=== PATIENT | female | born 1940 | race Caucasian/White ===

== ENCOUNTER 2018-03-21 13:42 | Observation (INO) | payer MEDICARE, BC ==
--- NOTE | 2018-03-21 13:50 | Emergency Department Record ---
History of Present Illness - General Chief Complaint: Dizziness Stated Complaint: DIZINESS Time Seen by Provider: 03/21/18 13:44 Source: Patient, EMS Mode of Arrival: EMS Limitations: No limitations - History of Present Illness Initial Comments: 77 yo female presents with diarrhea and an episode of dizziness. She states she felt dizzy since her dentist appointment at 1pm. She feels unsteady on her feet. The onset was upon standing after being in the dentist chair for a check up with cleaning. No headache. She has also been having diarrhea. She reports she had an urge to have a bowel movement and drove the [employer] to go to the restroom but was unable to make it in time. No vomiting. No headache , vision changes, hearing changes, speech changes, coordination changes of the arms or legs. She feels off balance with walking. PCP is Dr Smith. EMS reports the symptoms have been recurrent with bowel movements since the diarrhea started. EMS reports she walked in a steady manner to the ambulance. MD Complaint: Dizziness -: Hour(s) Timing: Constant (Started today after getting up from the dentist chair) History of Same: Yes History of Trauma: No Severity: Moderate Improves With: Remaining still, Rest Worsens With: Movement, Position Associated Symptoms: Other (diarrhea) - [place] Coma Scale Eye Response: (4) Open spontaneously Motor Response: (6) Obeys commands Verbal Response: (5) Oriented Brodie Total: 15 - Related Data Home Medications Medication Instructions Recorded Confirmed Last Taken Fluoxetine HCl [Prozac] 10 mg PO DAILY 03/21/18 03/21/18 Unknown Fluticasone Propionate [Flovent 10.6 gm IH QHS 03/21/18 03/21/18 Unknown Hfa] Metoprolol Succinate [Toprol Xl] 50 mg PO QHS 03/21/18 03/21/18 Unknown Olmesartan Medoxomil [Benicar] 40 mg PO DAILY 03/21/18 03/21/18 Unknown Allergies Allergy/AdvReac Type Severity Reaction Status Date / Time peanut Allergy SWELLING Verified 03/21/18 13:51 OF THE TONGUE Review of Systems Constitutional: Denies: Chills, Fever, Malaise, Weakness Eyes: Denies: Eye discharge, Eye pain, Photophobia, Vision change ENT: Denies: Congestion, Throat pain Respiratory: Denies: Cough, Dyspnea, Hemoptysis, Wheezes Cardiovascular: Denies: Chest pain, Palpitations, Syncope Endocrine: Denies: Fatigue, Polydipsia, Polyuria Gastrointestinal: Reports: As per HPI, Diarrhea. Denies: Abdominal pain, Nausea , Vomiting Genitourinary: Denies: Dysuria, Urgency Musculoskeletal: Denies: Arthralgia, Back pain, Joint swelling, Myalgia Skin: Denies: Bruising, Change in color, Rash Neurological: Reports: Abnormal gait, Vertigo. Denies: Confusion, Headache, Numbness, Paresthesias, Seizure, Tingling, Tremors, Weakness Psychiatric: Denies: Anxiety Hematological/Lymphatic: Denies: Blood Clots, Easy bleeding, Easy bruising Past Medical History - SOCIAL HISTORY Smoking Status: Current every day smoker - RESPIRATORY Hx Respiratory Disorders: Yes Hx COPD: Yes (? smoker) - CARDIOVASCULAR Hx Cardio Disorders: Yes Hx Hypertension: Yes Comment:: Hypercholesteremia - NEURO Hx Neuro Disorders: Yes Hx Neuropathy: Yes (LLE) - GI Hx GI Disorders: Yes Hx Reflux: Yes Hx Irritable Bowel: Yes Comment:: chronic diarrhea - Hx Genitourinary Disorders: Yes Hx Bladder Problem: Yes (stress incontinence) - ENDOCRINE Hx Endocrine Disorders: Yes Hx Diabetes: No Hx Thyroid Disease: Yes (status post total thyroidectomy 12/25/13) - MUSCULOSKELETAL Hx Musculoskeletal Disorders: Yes Hx Arthritis: Yes Hx Back Injury: Yes (fall -> injured LLE) Hx Osteoporosis: Yes - PSYCH Hx Psych Problems: Yes Hx Depression: Yes - HEMATOLOGY/ONCOLOGY Hx Hematology/Oncology Disorders: No Family Medical History Hx Cancer: Brother/Sister Hx Heart Disease: Father, Mother, Brother/Sister *Heart Comment: 2 brothers with aneurysms one with brain and the other in chest Physical Exam - General General Appearance: Alert, Oriented x3, Cooperative, No acute distress Limitations: No limitations - Head Head exam: Atraumatic, Normocephalic, Normal inspection - Eye Eye exam: Normal appearance, PERRL, EOMI. negative: Conjunctival injection, Periorbital swelling, Scleral icterus Pupils: Normal accommodation - ENT ENT exam: Normal exam, Mucous membranes moist Ear exam: Normal external inspection Nasal Exam: Normal inspection Mouth exam: Normal external inspection - Neck Neck exam: Normal inspection - Respiratory Respiratory exam: Normal lung sounds bilaterally. negative: Respiratory distress, Rhonchi, Stridor, Wheezes - Cardiovascular Cardiovascular Exam: Regular rate, Normal rhythm, Normal heart sounds Peripheral Pulses: 2+: Radial (R), Radial (L) - GI/Abdominal GI/Abdominal exam: Soft. negative: Tenderness - Rectal Rectal exam: Deferred - exam: Deferred - Extremities Extremities exam: Normal inspection. negative: Full ROM, Pedal edema, Tenderness - Back Back exam: Denies: CVA tenderness (R), CVA tenderness (L) - Neurological Neurological exam: Alert, CN II-XII intact, Oriented X3. negative: Motor sensory deficit - Psychiatric Psychiatric exam: Normal affect, Normal mood - Skin Skin exam: Dry, Intact, Normal color, Warm Stroke Assessment - NIH Stroke Scale 1a. Level of Consciousness: (0) Alert 1b. LOC Questions: (0) Answers Correctly 1c. LOC Commands: (0) Performs Tasks Correctly 2. Best Gaze: (0) Normal 3. Visual: (0) No Visual Loss 4. Facial Palsy: (0) Normal Symmetrical Movement 5a. Motor Arm Left: (0) No Drift 5b. Motor Arm Right: (0) No Drift 6a. Motor Leg Left: (0) No Drift 6b. Motor Leg Right: (0) No Drift 7. Limb Ataxia: (0) Absent 8. Sensory: (0) Normal 9. Best Language: (0) No Aphasia 10. Dysarthria: (0) Normal 11. Extinction/Inattention: (0) No Abnormality NIH Stoke Scale Total: 0 Course - Reevaluation(s) Reevaluation #1: NIH is 0 03/21/18 13:56 Some delay getting to CT to clean up diarrhea on patient 03/21/18 14:14 No acute changes on the CBC 03/21/18 14:21 The HCT was negative for acute infarct or hemorrhage. 03/21/18 14:26 The CMP and PT/PTT were normal 03/21/18 14:35 EKG #1: 1427 Rate: 50 Rhythm: sinus fabiola [place]: left Intervals: QTc 459, Qt 500 ST segments: No acute changes Prior: 12/19/13 HR 75 at that time with normal Qt On recheck the pain is able to stand and transfer well. Mild dizzy feeling. 03/21/18 14:36 HR does at times decrease to mid 40's. She is on a betablocker and CCB. I recommend admission for further work up of the symptoms and hold the medications, cardiology consultation, echo, carotids. 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 03/21/18 14:47 03/21/18 15:07 The Troponin is negative 03/21/18 15:13 The case was discussed with Dr Damon for admission for dizziness, bradycardia Medical Decision Making - Lab Data Result diagrams: 03/21/18 13:50 03/21/18 13:50 Disposition Disposition: Admit Clinical Impression: Bradycardia, Dizziness Disposition: Still a Patient at [facility] Decision to Admit: Admit from ER Decision to Admit Date: 03/21/18 Decision to Admit Time: 15:13 Condition: (2) Stable Forms: Patient Portal Access Time of Disposition: 15:13 Quality - Quality Measures Quality Measures: N/A - Blood Pressure Screening Does Patient Have Any of the Following: Active Dx of HTN Blood Pressure Classification: Hypertensive Reading Systolic Measurement: 173 Diastolic Measurement: 73 Screening for High Blood Pressure: Patient Exclusion, Hx of HTN [G9744]
[2018-03-21] MEDS ORDERED: MECLIZINE 25 MG TABLET PO ONE (13:55)
[2018-03-21 13:58] LABS: BASO % 0.4 % (0-6); EOS % 2.1 % (0-6); GRAN % 56.9 % (47-80); HEMATOCRIT 50.3 % (35.0-47.0); HEMOGLOBIN 16.3 gm/dl (11.6-16.0); LYMPH % 33.6 % (16-45); MEAN CELL VOLUME 95.3 fl (81-97); MEAN CORPUSCULAR HEMOGLOBIN 30.8 pg (27-33); MEAN CORPUSCULAR HGB CONC 32.4 g/dl (32-36); MEAN PLATELET VOLUME 10.2 fl (7.4-10.4); PLATELET COUNT 203 K/uL (130-400); RED BLOOD COUNT 5.28 M/uL (3.80-5.40); RED CELL DISTRIBUTION WIDTH 13.6 % (11.5-14.5); WHITE BLOOD COUNT W/O DIFF 6.7 K/uL (4.2-12.2)
[2018-03-21 14:11] LABS: PARTIAL THROMBOPLASTIN TIME 28.6 SECONDS (24.5-39.1)
[2018-03-21 14:12] LABS: BLOOD UREA NITROGEN 13 mg/dL (8-23); CREATININE 0.8 mg/dL (0.5-0.9); EST GLOMERULAR FILTRATION RATE > 60 mL/min
[2018-03-21 14:14] LABS: GLUCOSE,RANDOM 150 mg/dL (74-109)
[2018-03-21 14:17] LABS: ALB/GLOB RATIO 1.8 (1.1-1.8); ALBUMIN 4.5 g/dL (4.0-5.0); ALKALINE PHOSPHATASE 69 U/L (35-104); ALT/SGPT 20 U/L (<33); AST/SGOT 20 U/L (10.0-35.0)
[2018-03-21] MEDS ORDERED: ACETAMINOPHEN 325 MG TAB PO PRN (16:46)
[2018-03-21] MEDS ORDERED: PNEUM 13-VAL/PF 0.5 ML IM ONE (16:48)
[2018-03-21] MEDS ORDERED: FLUTICASONE PROPIONATE IH SCH (22:00)
[2018-03-22] MEDS ORDERED: LEVOTHYROXINE SODIUM 100 MCG TABLET PO SCH (08:00)
[2018-03-22] MEDS: GABAPENTIN 100 MG CAPSULE PO SCH ×2 (09:14→09:16)
[2018-03-22] MEDS ORDERED: FLUOXETINE HCL 10 MG CAPSULE PO SCH (10:00)
[2018-03-22] MEDS ORDERED: LOSARTAN POTASSIUM 100 MG TABLET PO SCH (10:00)
[2018-03-22] MEDS ORDERED: ARNUITY (FLUTICASONE FUROATE) 100MCG INH INH SCH (10:00)
[2018-03-22] MEDS ORDERED: ASPIRIN 325 MG TAB ENTERIC-COATED PO SCH (10:00)
[2018-03-22] MEDS ORDERED: FUROSEMIDE 20 MG TABLET PO SCH (10:00)
[2018-03-22] MEDS ORDERED: MELOXICAM 7.5 MG TABLET PO SCH (10:00)
[2018-03-22] MEDS ORDERED: MECLIZINE 25 MG TABLET PO ONE (13:14)
--- NOTE | 2018-03-22 18:42 | Discharge Note ---
VTE H&P Assessment - Risk for VTE Risk for VTE: No Risk Level: Very Low Risk Assessment Date: 03/22/18 Risk Assessment Time: 18:37 VTE Orders Placed or Will Be Placed: No VTE Reason for No Prophylaxis: Not Indicated Discharge Medications - Discharge Medications Prescriptions: Meclizine HCl [Antivert] 12.5 mg PO Q8H #30 tablet Home Medications: Ambulatory Orders Alendronate Sodium [Fosamax] 70 mg PO ASDIR 02/18/14 [Last Taken Unknown] Calcium Carbonate/Vitamin D3 [Calcium 600 + Vit D Tablet] 1 each PO DAILY [Last Taken 02/18/14] Fish Oil/Dha/Epa [Fish Oil 1,200 mg Fish Oil] 1 each PO DAILY 02/18/14 [Last Taken 02/18/14] Furosemide [Lasix] 20 mg PO DAILY 02/18/14 [Last Taken 02/18/14] Gabapentin [Gralise] 100 mg PO TID 02/18/14 [Last Taken 02/18/14] Levothyroxine Sodium 100 mcg PO DAILY 02/18/14 [Last Taken 02/18/14] Loratadine [Claritin] 10 mg PO DAILY 02/18/14 [Last Taken 02/18/14] Meloxicam [Mobic] 7.5 mg PO DAILY 02/18/14 [Last Taken 02/18/14] Multivit-Min/FA/Calcium/Vit K1 [One-A-Day Women's 50+ Tablet] 1 each PO DAILY [Last Taken 02/18/14] Potassium Chloride [Klor-Con M20] 20 meq PO BID 02/18/14 [Last Taken 02/18/14] Rosuvastatin Calcium [Crestor] 20 mg PO DAILY 02/18/14 [Last Taken 02/18/14] Verapamil HCl [Verapamil ER] 180 mg PO DAILY 02/18/14 [Last Taken 02/18/14] Fluoxetine HCl [Prozac] 10 mg PO DAILY 03/21/18 [Last Taken Unknown] Fluticasone Propionate [Flovent Hfa] 10.6 gm IH QHS 03/21/18 [Last Taken Unknown ] Olmesartan Medoxomil [Benicar] 40 mg PO DAILY 03/21/18 [Last Taken Unknown] Acetaminophen [Tylenol 325Mg] 650 mg PO Q6H PRN tablet 03/22/18 [Last Taken Unknown] Meclizine HCl [Antivert] 12.5 mg PO Q8H #30 tablet 03/22/18 [Last Taken Unknown] Meloxicam [Mobic] 7.5 mg PO DAILY tablet 03/22/18 [Last Taken Unknown] Discharge Note - Date Date of Discharge Note: 03/22/18 Disposition: Home, Self-Care Condition: (2) Stable Additional Instructions: follow up with Dr. Smith in 3-7 days stop metoprolol because of bradycardia start meclizine antivert 12 .5 mg three times a day Forms: Patient Portal Access Activity at Discharge: Increase Activity as Tolerated
--- NOTE | 2018-03-23 18:00 | History and Physical Report ---
CHIEF COMPLAINT: Dizziness. HISTORY OF PRESENT ILLNESS: The patient was in a dental chair looking up, became dizzy, balance was off, came to the emergency department for evaluation. She first started to go to [employer] to use the bathroom. She had the urge to have a bowel movement. She had diarrhea and did not make it to the bathroom. EMS was called. She was transported to the hospital and evaluated by Dr. Bautista with a diagnosis of bradycardia, dizziness. She had no headaches, no vomiting, some diarrhea. She felt that her symptoms were worse when she looked up. She was given 1 Antivert 25 mg in the emergency department, which helped tremendously. She had a spinning sensation. PAST MEDICAL HISTORY: COPD, hypertension, hypercholesterolemia, neuropathy left lower extremity, GERD, irritable bowel, chronic diarrhea, stress incontinence of the bladder, hypothyroidism, post thyroidectomy from December 2013, arthritis, low back pain, osteoporosis, depression. PAST SURGICAL HISTORY: Bilateral cataract removal, hysterectomy, appendectomy, total thyroidectomy, shoulder right rotator cuff surgery. MEDICATIONS: 1. Lasix 20 mg a day. 2. Levothyroxine 100 mcg a day. 3. Flovent daily. 4. Benicar 40 mg daily. 5. Prozac 10 mg daily. 6. Verapamil 180 mg daily. 7. Crestor 20 mg daily. 8. Potassium chloride, Klor-Con 20 mEq b.i.d. 9. Multivitamin 1 a day. 10. Meloxicam 7.5 daily. 11. Claritin 10 mg daily. 12. Gabapentin 100 mg t.i.d. 13. Fish oil 1 a day. 14. Fosamax 70 mg 1 a week. 15. Tylenol p.r.n. ALLERGIES: PEANUTS. FAMILY/PSYCHOSOCIAL HISTORY: Cancer in brother and sister. Father, mother, brother, and sister have heart disease. Two brothers of aneurysm, one of the brain and the other in the chest. REVIEW OF SYSTEMS: HEENT: No upper respiratory infection symptoms, cough, cold, or congestion. She has vertigo when she looks up, spinning sensation. Cardiovascular: No chest pain, palpitations, or arrhythmias. Respiratory: No shortness of breath, cough, cold, or congestion. She does smoke and has COPD. Gastrointestinal: Diarrhea but that is resolving. Today it is mostly soft stool. No vomiting. Genitourinary: No dysuria, hematuria, frequency, or burning on urination. Musculoskeletal: No joint or bone abnormalities. She has arthritis and low back pain. Neurological: No CVA, paralysis, or paresthesias. Endocrine: She has hypothyroidism. No diabetes. Integument: No rash, ulcers, change in moles, or yellow skin. PHYSICAL EXAMINATION: VITALS: Height 5 feet 2 inches, weight 192 pounds. Coming into the hospital, the temperature was 98.8, pulse 54, blood pressure 141/70, respiratory rate 18, pulse ox 94% on room air. HEENT: Pupils are equal, round, and reactive to light and accommodation. Extraocular muscles are intact. Throat is clear. Nose is clear. Tympanic membranes are cuellar. NECK: Supple. No jugular venous distention. No hepatojugular reflux. No carotid bruits. Thyroid is smooth. CARDIOVASCULAR: Regular rate and rhythm without murmurs, clicks, rubs, or gallops. RESPIRATORY: Clear to auscultation and percussion. ABDOMEN: Soft, nontender. No hepatosplenomegaly, no masses, no tenderness. Bowel sounds are active. No bruits. EXTREMITIES: No pitting edema. No cyanosis, no clubbing. Full range of motion. Peripheral pulses are good. BREASTS: Exam deferred. GYNECOLOGICAL: Exam deferred. RECTAL: Exam deferred. NEUROLOGIC: Cranial nerves II-XII intact. No gross defects. Sensation normal, strength normal. Deep tendon reflexes equal bilaterally with Babinski negative. When looking upwards, she had vertigo, spinning sensation, nystagmus of her eyes and looking to the right. MENTAL STATUS: Alert and oriented x3. IMPRESSION: 1. Benign positional vertigo. 2. Bradycardia secondary to medications. 3. Hypertension. 4. Vasovagal syncope. 5. Chronic diarrhea. 6. Status post hypertension. 7. Status post hypothyroidism. PLAN: Meclizine 12.5 t.i.d. Discussed the case with Cardiology, Dr. Wetzel. I was going to get a cardiology consult that was ordered by Dr. Bautista. Dr. Wetzel called me up and asked me if it was necessary. We discussed the case. He felt it could be worked up as an outpatient and further cardiology evaluation was necessary. We will have her follow up with Dr. Smith and continue the meclizine 12.5 three times a day. [facility]
--- NOTE | 2018-03-23 18:00 | Discharge Summary ---
DISCHARGE DIAGNOSES: 1. Benign postural vertigo. 2. Hypertension. 3. Bradycardia secondary to medications. We will stop metoprolol because of the bradycardia. 4. Vasovagal syncope. ATTENDING PHYSICIAN: Tyler Lauren DO REASON FOR HOSPITALIZATION: The patient remains dizzy after being in the dental chair, especially when she looked upwards. She was fine before she went to the dentist. The dizziness was a spinning sensation. She was evaluated in the emergency department by Dr. Bautista. She felt her balance was off. She had no headache. She also had a little bit of diarrhea. She tried to get to [facility] but did not make it to the bathroom. She came to the emergency department by EMS from [facility]. She was cleaned up. She had a CT of the head which was negative. Her labs were normal. EKG showing sinus bradycardia. It was 50. She had more dizziness when she looked up. They gave her 1 Antivert in the emergency department which helped tremendously. Admission happened to rule out cardiac abnormality. Troponin T's were negative x3 time points. Echocardiogram shows a normal ejection fraction. Carotid Dopplers were negative. Some plaquing in the internal carotid artery proximal. Discussed the case with Dr. Wetzel and he felt that he could follow up with Dr. Smith, felt it was necessary with a cardiac workup outpatient. THERAPY PROVIDED: The patient was given meclizine 12.5 mg in the hospital today. She felt like the dizziness and balance problem was totally gone. HOSPITAL COURSE: Gradually improved. CONDITION ON DISCHARGE: Much improved. DISCHARGE INSTRUCTIONS: Follow up with Dr. Smith in 5-7 days. Stop the metoprolol because of the bradycardia. May restart it because it is not that low according to Dr. Wetzel, myself. It occasionally dropped down to the high 40s. Start meclizine 12.5 mg 3 times a day. Continue her home medications of Fosamax 70 mg a day, calcium with vitamin D3 once a day, fish oil once a day, Lasix 20 mg daily, gabapentin 100 mg t.i.d., levothyroxine 100 mcg daily, Claritin 10 mg daily, Mobic 7.5 daily, multivitamin 1 a day, potassium chloride 20 mEq b.i.d., Crestor 20 mg daily, verapamil 180 mg daily, Prozac 10 mg daily, Flovent 2 puffs b.i.d. p.r.n., Benicar 40 mg daily, meclizine a new medication started 12.5 t.i.d. CC: DO LANDY Purdy
--- NOTE | 2018-03-24 15:18 | CT SCAN REPORT ---
EXAM: EMERGENCY HEAD CT WITHOUT CONTRAST HISTORY: DIZZINESS FOR THIRTY MINUTES. TECHNIQUE: Axial CT scan of the head was performed without IV contrast. Comparison: Head CT 11/02/13. FINDINGS: No definite acute intracranial hemorrhage identified. No focal mass effect or midline shift apparent. Mild generalized atrophy as before and some chronic appearing deep white matter changes are again seen as before, nonspecific, but likely representing some chronic small vessel deep white matter ischemic disease. No definite acute infarct or intracranial mass lesion is seen. Opacification of the angelica bullosa in the left middle turbinate, new since the prior study. IMPRESSION: 1. NO DEFINITE ACUTE INTRACRANIAL HEMORRHAGE OR FOCAL MASS EFFECT EVIDENT. 2. GENERALIZED ATROPHY WITH SOME CHRONIC APPEARING DEEP WHITE MATTER CHANGES BEFORE. 3. NEW OPACIFICATION OF THE ANGELICA BULLOSA OF THE LEFT MIDDLE TURBINATE COMPARED WITH 11/02/13. JOB NUMBER: [id number] MTDD
--- NOTE | 2018-03-25 09:45 | US CAROTID DOPPLER REPORT ---
EXAM: BILATERAL CAROTID DOPPLER ULTRASOUND HISTORY: DIZZINESS. TECHNIQUE: Sonographic evaluation of the vasculature of the neck was performed with the addition of Doppler and spectral analysis. FINDINGS: Right ICA: 51 cm/s Right CCA: 37 cm/s Right ECA: 44 cm/s Right Vertebral Artery: 37 cm/s There is antegrade flow. The ICA/CCA ratio is 1.4. Left ICA: 45 cm/s Left CCA: 48 cm/s Left ECA: 50 cm/s Left Vertebral Artery: 43 cm/s There is antegrade flow. The ICA/CCA ratio is 1.0. IMPRESSION: NO HEMODYNAMICALLY SIGNIFICANT STENOSIS IS APPRECIATED. JOB NUMBER: [id number] MTDD
== END 2018-03-22 19:20 | disposition home or self-care (01) ==
LOC: ER 13:42 → MEDSURG 16:27 → INTOOBSV 16:27
PROVIDERS: ADMIT Internal Medicine; ATTEND Internal Medicine
DX: R00.1 Bradycardia, unspecified (principal); R19.7 Diarrhea, unspecified; J44.9 Chronic obstructive pulmonary disease, unspecified; I10 Essential (primary) hypertension; N39.3 Stress incontinence (female) (male); G62.9 Polyneuropathy, unspecified; M19.90 Unspecified osteoarthritis, unspecified site; K58.9 Irritable bowel syndrome, unspecified; F17.210 Nicotine dependence, cigarettes, uncomplicated; Z86.14 Personal history of Methicillin resistant Staphylococcus aureus infection; E89.0 Postprocedural hypothyroidism
CPT/HCPCS: 70450; 80053; 84484; 85025; 85610; 85730; 93005; 93010; 93306; 93880; 94640; 99220; 99285

== ENCOUNTER 2018-09-23 16:32 | Emergency (ER) | payer MEDICARE, BC ==
--- NOTE | 2018-09-23 17:26 | Emergency Department Record ---
History of Present Illness - General Chief complaint: Pain Stated complaint: RT SHOULDER INJURY Time Seen by Provider: 09/23/18 16:59 Source: Patient Mode of Arrival: Ambulatory Limitations: No limitations - History of Present Illness Initial comments: pt was getting her hair done when she had a bout of vertigo [which she has had before] and lost her balance fell back and hit her head and injured her r arm. no loc MD Complaint: Extremity pain Onset/Timin -: Hour(s) Location: Right, Arm Improves with: Immobilization Worsens with: Palpation - Related Data Previous Rx's Medication Instructions Recorded Acetaminophen [Tylenol 325Mg] 650 mg PO Q6H PRN tablet 03/22/18 Meclizine HCl [Antivert] 12.5 mg PO Q8H #30 tablet 03/22/18 Meloxicam [Mobic] 7.5 mg PO DAILY tablet 03/22/18 Allergies Allergy/AdvReac Type Severity Reaction Status Date / Time peanut Allergy SWELLING Verified 09/23/18 16:51 OF THE TONGUE Travel Screening - Travel/Exposure Within Last 30 Days Have you traveled within the last 30 days?: No - Travel/Exposure Within Last Year Have you traveled outside the [place] in the last year?: No - Additonal Travel Details Have you been exposed to anyone with a communicable illness?: No - Travel Symptoms Symptom Screening: None Review of Systems Reviewed: No additional complaints except as noted below Constitutional: Reports: As per HPI. Denies: Chills, Fever, Malaise, Night sweats, Weakness, Weight change Eyes: Reports: As per HPI. Denies: Eye discharge, Eye pain, Photophobia, Vision change ENT: Reports: As per HPI. Denies: Congestion, Dental pain, Ear pain, Epistaxis , Hearing loss, Throat pain Respiratory: Reports: As per HPI. Denies: Cough, Dyspnea, Hemoptysis, Stridor, Wheezes Cardiovascular: Reports: As per HPI. Denies: Arrhythmia, Chest pain, Dyspnea on exertion, Edema, Murmurs, Orthopnea, Palpitations, Paroxysmal nocturnal dyspnea, Rheumatic Fever, Syncope Endocrine: Reports: As per HPI. Denies: Fatigue, Heat or cold intolerance, Polydipsia, Polyuria Gastrointestinal: Reports: As per HPI. Denies: Abdominal pain, Constipation, Diarrhea, Hematemesis, Hematochezia, Melena, Nausea, Vomiting Genitourinary: Reports: As per HPI. Denies: Abnormal menses, Discharge, Dyspareunia, Dysuria, Frequency, Hematuria, Incontinence, Retention, Urgency Musculoskeletal: Reports: As per HPI. Denies: Arthralgia, Back pain, Gout, Joint swelling, Myalgia, Neck pain Skin: Reports: As per HPI. Denies: Bruising, Change in color, Change in hair/ nails, Lesions, Pruritus, Rash Neurological: Reports: As per HPI. Denies: Abnormal gait, Confusion, Headache, Numbness, Paresthesias, Seizure, Tingling, Tremors, Vertigo, Weakness Psychiatric: Reports: As per HPI. Denies: Anxiety, Auditory hallucinations, Depression, Homicidal thoughts, Suicidal thoughts, Visual hallucinations Hematological/Lymphatic: Reports: As per HPI. Denies: Anemia, Blood Clots, Easy bleeding, Easy bruising, Swollen glands Past Medical History - SOCIAL HISTORY Smoking Status: Current every day smoker Alcohol Use: None Drug Use: None - RESPIRATORY Hx Respiratory Disorders: Yes Hx COPD: Yes (? smoker) - CARDIOVASCULAR Hx Cardio Disorders: Yes Hx Hypertension: Yes Comment:: Hypercholesteremia - NEURO Hx Neuro Disorders: Yes Hx Dizziness: Yes (Vertigo.) Hx Neuropathy: Yes (LLE) - GI Hx GI Disorders: Yes Hx Reflux: Yes Hx Irritable Bowel: Yes Comment:: chronic diarrhea - Hx Genitourinary Disorders: Yes Hx Bladder Problem: Yes (stress incontinence) - ENDOCRINE Hx Endocrine Disorders: Yes Hx Diabetes: No Hx Thyroid Disease: Yes (status post total thyroidectomy 12/25/13) - MUSCULOSKELETAL Hx Musculoskeletal Disorders: Yes Hx Arthritis: Yes Hx Back Injury: Yes (fall -> injured LLE) Hx Osteoporosis: Yes - PSYCH Hx Psych Problems: Yes Hx Depression: Yes - HEMATOLOGY/ONCOLOGY Hx Hematology/Oncology Disorders: No Family Medical History Any Significant Family History?: No Hx Cancer: Brother/Sister Hx Heart Disease: Father, Mother, Brother/Sister *Heart Comment: 2 brothers with aneurysms one with brain and the other in chest Physical Exam - General General Appearance: Alert, Oriented x3, Cooperative, Mild distress - Head Head exam: Normal inspection Head exam detail: General tenderness - Eye Eye exam: Normal appearance, PERRL, EOMI Pupils: Normal accommodation - ENT ENT exam: Normal exam, Mucous membranes moist, Normal external ear exam, Normal orophraynx Ear exam: Normal external inspection. negative: External canal tenderness Nasal Exam: Normal inspection. negative: Discharge, Sinus tenderness Mouth exam: Normal external inspection, Tongue normal Teeth exam: Normal inspection. negative: Dental caries Throat exam: Normal inspection. negative: Tonsillar erythema, Tonsillar exudate - Neck Neck exam: Normal inspection, Full ROM. negative: Tenderness - Respiratory Respiratory exam: Normal lung sounds bilaterally. negative: Respiratory distress - Cardiovascular Cardiovascular Exam: Regular rate, Normal rhythm, Normal heart sounds - GI/Abdominal GI/Abdominal exam: Soft, Normal bowel sounds. negative: Tenderness - Rectal Rectal exam: Deferred - exam: Deferred - Extremities Extremities exam: Normal capillary refill, Tenderness, Other (ruptured biceps [ old]). negative: Full ROM Image of Full Body: 1 - tender - Back Back exam: Reports: Normal inspection, Full ROM. Denies: Muscle spasm, Rash noted, Tenderness - Neurological Neurological exam: Alert, CN II-XII intact, Normal gait, Oriented X3 - Psychiatric Psychiatric exam: Normal affect, Normal mood - Skin Skin exam: Dry, Intact, Normal color, Warm Course Vital Signs 09/23/18 16:36 Temperature 97.3 F L Pulse Rate 63 Respiratory 18 Rate Blood Pressure 141/72 Pulse Ox 94 L Disposition Disposition: Discharge Clinical Impression: Shoulder sprain Qualifiers: Encounter type: initial encounter Shoulder sprain type: unspecified sprain Laterality: right Qualified Code(s): S43.401A - Unspecified sprain of right shoulder joint, initial encounter Head injury Qualifiers: Encounter type: initial encounter Qualified Code(s): S09.90XA - Unspecified injury of head, initial encounter Disposition: Home, Self-Care Condition: (1) Good Instructions: Shoulder Sprain (ED), Head Injury (ED), Rotator Cuff Injury (ED) Additional Instructions: follow up with family doctor. return sooner if worse. take 1/2 norco if needed every 8 hours. aleve with food. ice to shoulder every 4 hours. wear sling 3 days only. do range of motion exercises. Forms: Patient Portal Access Quality - Quality Measures Quality Measures: N/A - Blood Pressure Screening Does Patient Have Any of the Following: Active Dx of HTN Blood Pressure Classification: Hypertensive Reading Systolic Measurement: 141 Diastolic Measurement: 72 Screening for High Blood Pressure: Patient Exclusion, Hx of HTN [[id number]]
[2018-09-23] MEDS ORDERED: HYDROCODONE/APAP 5/325MG TABLET PO ONE (18:25)
--- NOTE | 2018-09-26 19:20 | CT SCAN REPORT ---
EXAM: CT SCAN HEAD WO CONTRAST HISTORY: VERTIGO RESULTING IN FALL. TECHNIQUE: CT of the head without contrast. FINDINGS: Brain volume is normal. There is no evidence of hemorrhage, mass effect, or midline shift. No extraaxial fluid collections are seen. The ventricles and basal cisterns are preserved. IMPRESSION: UNREMARKABLE CT SCAN OF THE BRAIN. JOB NUMBER: [id number] MTDD
--- NOTE | 2018-09-26 19:22 | RADIOLOGY REPORT ---
EXAM: SHOULDER, RIGHT HISTORY: FALL. TECHNIQUE: Three views of the right shoulder are obtained. FINDINGS: Moderate degenerative narrowing of the glenohumeral joint is accompanied by inferior osteophytes. There are postoperative changes of previous rotator cuff repair. No acute fracture or dislocation is identified. The acromioclavicular joint is preserved. 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 JOB NUMBER: [id number] [facility]
== END 2018-09-23 18:44 | disposition home or self-care (01) ==
LOC: ER 16:32
DX: S43.401A Unspecified sprain of right shoulder joint, initial encounter (principal); S09.90XA Unspecified injury of head, initial encounter; R42 Dizziness and giddiness; I10 Essential (primary) hypertension; J44.9 Chronic obstructive pulmonary disease, unspecified; F17.210 Nicotine dependence, cigarettes, uncomplicated; W01.10XA Fall on same level from slipping, tripping and stumbling with subsequent striking against unspecified object, initial encounter; Y92.29 Other specified public building as the place of occurrence of the external cause
CPT/HCPCS: 70450; 99283; 99284